=== PATIENT | female | born 1990 | race Caucasian/White ===

== ENCOUNTER 2017-03-21 20:12 | Emergency (ER) | payer MEDICAID, OTHER ==
[~2017-03-21] VITALS: Ht 149.9 cm; Wt 47.0 kg
[2017-03-21 20:13] VITALS: BP 115/69; PULSE 68; RESP 16; TEMP 98.6; O2SAT 99
[2017-03-21] MEDS ORDERED: CLIN150 PO (21:13)
[2017-03-21] MEDS ORDERED: DICL75TA PO (21:13)
[2017-03-21] MEDS ORDERED: CLINDAMYCIN 150 MG CAP PO ONE (21:15)
[2017-03-21] MEDS ORDERED: ACETAMINOPHEN/HYDROcodone 325 MG/5 MG TAB PO ONE (21:15)
--- NOTE | 2017-03-21 21:17 | PD ---
HPI Chief Complaint: Oral / Dental Pain or Problem Time Seen by Provider: 21:00 Travel History International Travel<30 days: No Contact w/Intl Traveler<30days: No Traveled to known affect area: No History of Present Illness HPI 23-year-old white female presents to emergency Department with complaints of right upper second molar pain. She states that this is started bothering her over last 3 days. She had just got to [place] in the last 2-3 days from [place]. She is visiting family members. She is unsure when she is going home. She denies any fever or chills. She states the pain is mild-to- moderate. She reports having recently had dental work done on this tooth before coming to [place]. She patient does smoke and drink alcohol occasionally. Denies . PFSH Past Medical History Medical History: Denies Significant Hx Immunizations Current: Yes Tetanus Vaccination: < 5 Years Influenza Vaccination: Yes ?: Not Past Surgical History Narrative Surgical Appendectomy, cholecystectomy Social History Alcohol Use: Yes Tobacco Use: Yes Substance Use: No Allergies-Medications (Allergen,Severity, Reaction): Coded Allergies: penicillin G (Verified Allergy, Severe, Anaphylaxis, 03/21/17) Reported Meds & Prescriptions Reported Meds & Active Scripts Active Diclofenac Sodium DR (Diclofenac Sodium) 75 Mg Tabdr 75 Mg PO BID Cleocin (Clindamycin HCl) 150 Mg Cap 300 Mg PO Q6H 10 Days Review of Systems Except as stated in HPI: all other systems reviewed are Neg Physical Exam Narrative GENERAL: Well-developed, well-nourished in no acute distress. Nontoxic appearing. HEAD: Normocephalic, atraumatic. EYES: Pupils equal round and reactive. Extraocular motions intact. No scleral icterus. No injection or drainage. ENT: TMs clear without erythema. The external auditory canals clear. Nose: clear . Posterior pharynx is pink and moist. No tonsillar edema or exudate. Uvula midline. Airway patent. The patient points to tooth #2. There is a filling in the tooth but everything appears normal around the tooth. NECK: Trachea midline.Supple, nontender, moves head freely. No central bony tenderness or spasm. CARDIOVASCULAR: Regular rate and rhythm without murmurs, gallops, or rubs. RESPIRATORY: Clear to auscultation. Breath sounds equal bilaterally. No wheezes , rales, or rhonchi. GASTROINTESTINAL: Abdomen soft, non-tender, nondistended. No hepato-splenomegaly , or palpable masses. No guarding. EXTREMITIES: No clubbing, cyanosis, or edema. No joint tenderness, effusion, or edema noted. BACK: Nontender without deformity or crepitance. No flank tenderness. Data Data Last Documented VS Vital Signs Date Time Temp Pulse Resp B/P (MAP) Pulse Ox O2 Delivery O2 Flow Rate FiO2 03/21/17 20:13 98.6 68 16 115/69 (84) 99 Room Air Orders Orders Clindamycin (Cleocin) (03/21/17 21:15) Acetamin-Hydrocod 325-5 Mg ([place] 5-325 (03/21/17 21:15) MDM Medical Decision Making Medical Screen Exam Complete: Yes Emergency Medical Condition: Yes Medical Record Reviewed: Yes Differential Diagnosis MDM: Moderate Differential diagnoses: Dental abscess, dental caries, osteitis, cellulitis Narrative Course Dentalgia Patient's given Lortab 5 and clindamycin 300 mg by mouth Diagnosis Primary Impression: Dentalgia Patient Instructions: Narcotic given in the ED, General Instructions Additional Instructions: Rest. Saltwater gargles. Olla oil on cotton balls. Clindamycin and diclofenac follow-up with a dentist as soon as possible. And return to the ER if any problems. Med/Other Pt SpecificInfo: Prescription(s) given Scripts Diclofenac Sodium DR (Diclofenac Sodium DR) 75 Mg Tabdr 75 MG PO BID, #20 TAB 0 Refills Prov: Eve Colindres MD 03/21/17 Clindamycin (Cleocin) 150 Mg Cap 300 MG PO Q6H for Infection for 10 Days, #80 CAP 0 Refills Prov: Eve Colindres MD 03/21/17 Disposition: 01 DISCHARGE HOME Condition: Stable Casimiro Lenz Mar 21, 2017 21:17
[2017-03-22] MEDS ORDERED: NEUR300C PO (22:12)
[2017-03-22] MEDS ORDERED: ACYC800T PO (22:12)
== END 2017-03-21 21:36 | disposition home or self-care (01) ==
LOC: NEPK 20:12
DX: K08.89 Other specified disorders of teeth and supporting structures (principal); Z72.0 Tobacco use; Z79.899 Other long term (current) drug therapy; Z88.0 Allergy status to penicillin
CPT/HCPCS: 99284

== ENCOUNTER 2017-03-22 21:09 | Emergency (ER) | payer MEDICAID, OTHER ==
[~2017-03-22] VITALS: Ht 149.9 cm; Wt 50.0 kg
[~2017-03-22 21:09] MED LIST: CLIN150 PO; DICL75TA PO
[2017-03-22 21:11] VITALS: BP 121/77; PULSE 86; RESP 16; TEMP 98; O2SAT 100
[2017-03-22] MEDS ORDERED: NEUR300C PO (22:12)
[2017-03-22] MEDS ORDERED: ACYC800T PO (22:12)
[2017-03-22] MEDS ORDERED: GABAPENTIN 300 MG CAP PO ONE (22:15)
[2017-03-22] MEDS ORDERED: ACYCLOVIR 800 MG TAB PO ONE (22:15)
--- NOTE | 2017-03-22 22:17 | PD ---
HPI Chief Complaint: Oral / Dental Pain or Problem Time Seen by Provider: 22:02 Travel History International Travel<30 days: No Contact w/Intl Traveler<30days: No Traveled to known affect area: No History of Present Illness HPI 26-year-old white female presents to emergency department after being seen last evening for right upper dental pain and placed on clindamycin and diclofenac. She states that she went to a dentist today who performed an x-ray of her tooth and did not see anything that looked obvious. The patient later developed blistering on the roof of her mouth and on the corner of her mouth. The dentist felt that she may be developing shingles and advised her come back to the ER. The patient does admit to pain in the right side of her face although she does not have any rashes on the exterior of her face. She admits to feeling rundown and having a headache. No nausea vomiting. Mild sore throat. PFSH Past Medical History Medical History: Denies Significant Hx Immunizations Current: Yes Tetanus Vaccination: < 5 Years ?: Not LMP: IUD Past Surgical History Appendectomy: Yes Cholecystectomy: Yes Tonsillectomy: Yes (T&A) Social History Alcohol Use: Yes Tobacco Use: Yes Substance Use: No Allergies-Medications (Allergen,Severity, Reaction): Coded Allergies: penicillin G (Verified Allergy, Severe, Anaphylaxis, 03/22/17) Reported Meds & Prescriptions Reported Meds & Active Scripts Active Neurontin (Gabapentin) 300 Mg Cap 300 Mg PO TID Acyclovir 800 Mg Tab 800 Mg PO 5 TIMES A DAY [address] (Diclofenac Sodium) 75 Mg Tabdr 75 Mg PO BID Cleocin (Clindamycin HCl) 150 Mg Cap 300 Mg PO Q6H 10 Days Review of Systems Except as stated in HPI: all other systems reviewed are Neg Physical Exam Narrative GENERAL: Well-developed, well-nourished in no acute distress. Nontoxic appearing. HEAD: Normocephalic, atraumatic. EYES: Pupils equal round and reactive. Extraocular motions intact. No scleral icterus. No injection or drainage. ENT: TMs clear without erythema. The external auditory canals clear. Nose: clear . Posterior pharynx is pink and moist. No tonsillar edema or exudate. Uvula midline. Airway patent. NECK: Trachea midline.Supple, nontender, moves head freely. No central bony tenderness or spasm. CARDIOVASCULAR: Regular rate and rhythm without murmurs, gallops, or rubs. RESPIRATORY: Clear to auscultation. Breath sounds equal bilaterally. No wheezes , rales, or rhonchi. GASTROINTESTINAL: Abdomen soft, non-tender, nondistended. No hepato-splenomegaly , or palpable masses. No guarding. EXTREMITIES: No clubbing, cyanosis, or edema. No joint tenderness, effusion, or edema noted. BACK: Nontender without deformity or crepitance. No flank tenderness. Skin: Patient has 3 small 2-3 mm vesicular lesions on the dry vermilion of the right lower lip. Patient has some gingival erythema and ulceration on the hard palate on the right side. I see no vesicular lesions on the outer face. Data Data Last Documented VS Vital Signs Date Time Temp Pulse Resp B/P (MAP) Pulse Ox O2 Delivery O2 Flow Rate FiO2 03/22/17 21:11 98.0 86 16 121/77 (92) 100 Orders Orders Acyclovir (Zovirax) (03/22/17 22:15) Gabapentin (Neurontin) (03/22/17 22:15) [facility] Medical Decision Making Medical Screen Exam Complete: Yes Emergency Medical Condition: Yes Medical Record Reviewed: Yes Differential Diagnosis Diagnosis: Shingles versus HSV versus dental abscess Narrative Course I explained to the patient that her symptoms are classical of a shingles outbreak but I will be happy to treat her today. She does have symptoms consistent with HSV. Patient is concerned that this potentially could be early stages of shingles and would like to treat it. Patient's given acyclovir 800 mg by mouth and Neurontin 300 mg by mouth. Diagnosis Primary Impression: Shingles Qualified Codes: B02.9 - Zoster without complications Patient Instructions: General Instructions Additional Instructions: Rest. Daily wound care with soap and water and apply calamine lotion. Acyclovir and Neurontin. Follow-up with a primary care doctor in the next 3-5 days for recheck. Return to the ER for emergencies Med/Other Pt SpecificInfo: Prescription(s) given Scripts Gabapentin (Neurontin) 300 Mg Cap 300 MG PO TID, #30 CAP 0 Refills Prov: Grover Moy MD 03/22/17 Acyclovir (Acyclovir) 800 Mg Tab 800 MG PO 5 TIMES A DAY for Mgmt Viral Infection for 7 Days, TAB 0 Refills Prov: Grover Myo MD 03/22/17 Disposition: 01 DISCHARGE HOME Condition: Stable Casimiro Lenz Mar 22, 2017 22:17
== END 2017-03-22 22:49 | disposition home or self-care (01) ==
LOC: NEPK 21:09
DX: B02.9 Zoster without complications (principal); Z72.0 Tobacco use
CPT/HCPCS: 99284

== ENCOUNTER 2017-05-16 20:02 | Emergency (ER) | payer MEDICAID ==
[~2017-05-16 20:02] MED LIST changes: +ACYC800T PO; +NEUR300C PO
[2017-05-16 20:03] VITALS: BP 127/72; PULSE 72; RESP 16; TEMP 98.7; O2SAT 100
--- NOTE | 2017-05-16 21:37 | PD ---
HPI Chief Complaint: Edema Time Seen by Provider: 21:29 Travel History International Travel<30 days: No Contact w/Intl Traveler<30days: No Traveled to known affect area: No History of Present Illness HPI 26-year-old female here for evaluation of right facial pain and swelling for 1 week. The patient was started on clinic might in 5 days ago. She states that she was seen by a dentist today who performed x-rays and told her that the x- rays of her teeth looked normal and that she should go to the emergency department for further evaluation. Pain is moderate, constant, worse with palpation, movements, slightly better with rest. She has had on and off fevers and chills. She is able to swallow and tolerate her secretions. No respiratory difficulties. PFSH Past Medical History Medical History: Denies Significant Hx Immunizations Current: Yes Tetanus Vaccination: < 5 Years Influenza Vaccination: Yes ?: Not LMP: 04/20/07 Past Surgical History Appendectomy: Yes Cholecystectomy: Yes Tonsillectomy: Yes (T&A) Social History Alcohol Use: Yes Tobacco Use: Yes Substance Use: No Allergies-Medications (Allergen,Severity, Reaction): Coded Allergies: penicillin G (Verified Allergy, Severe, Anaphylaxis, 03/22/17) Reported Meds & Prescriptions Reported Meds & Active Scripts Active Neurontin (Gabapentin) 300 Mg Cap 300 Mg PO TID Acyclovir 800 Mg Tab 800 Mg PO 5 TIMES A DAY [address] (Diclofenac Sodium) 75 Mg Tabdr 75 Mg PO BID Cleocin (Clindamycin HCl) 150 Mg Cap 300 Mg PO Q6H 10 Days Review of Systems Except as stated in HPI: all other systems reviewed are Neg Physical Exam Narrative GENERAL: Well-developed, well-nourished, comfortable, no apparent distress. SKIN: Focused skin assessment warm/dry. HEAD: Atraumatic. Normocephalic. Mild right cheek swelling without induration or fluctuance. EYES: Pupils equal and round. No scleral icterus. No injection or drainage. ENT: No nasal bleeding or discharge. Mucous membranes pink and moist. Normal dentition. Mild right cheek swelling. No tongue swelling. No trismus. No drooling or stridor. No neck swelling or induration. Normal phonation. Bilateral tympanic members and external auditory canals are normal. NECK: Trachea midline. No JVD. CARDIOVASCULAR: Regular rate and rhythm. RESPIRATORY: No accessory muscle use. Clear to auscultation. Breath sounds equal bilaterally. MUSCULOSKELETAL: No obvious deformities. No clubbing. No cyanosis. No edema. NEUROLOGICAL: Awake and alert. No obvious cranial nerve deficits. Motor grossly within normal limits. Normal speech. PSYCHIATRIC: Appropriate mood and affect; insight and judgment normal. Data Data Last Documented VS Vital Signs Date Time Temp Pulse Resp B/P (MAP) Pulse Ox O2 Delivery O2 Flow Rate FiO2 05/16/17 21:41 16 99 Room Air 05/16/17 20:03 98.7 72 Orders Orders Complete Blood Count With Diff (05/16/17 21:34) Comprehensive Metabolic Panel (05/16/17 21:34) Prothrombin Time / Inr (Pt) (05/16/17 21:34) Act Partial Throm Time (Ptt) (05/16/17 21:34) Iv Access Insert/Monitor (05/16/17 21:34) Ecg Monitoring (05/16/17 21:34) Oximetry (05/16/17 21:34) Sodium Chloride 0.9% Flush (Ns Flush) (05/16/17 21:45) Ct Facial Bones W Iv Contrast (05/16/17 ) Ketorolac Inj (Toradol Inj) (05/16/17 21:45) Ed Urine Pregnancytest Poc (05/16/17 21:45) Iohexol 350 Inj (Omnipaque 350 Inj) (05/16/17 22:02) Levofloxacin (Levaquin) (05/16/17 23:00) Prednisone (Deltasone) (05/16/17 23:00) Labs Laboratory Tests Test 05/16/17 21:35 White Blood Count 10.1 TH/MM3 Red Blood Count 5.14 MIL/MM3 Hemoglobin 15.3 GM/DL Hematocrit 44.1 % Mean Corpuscular Volume 85.7 FL Mean Corpuscular Hemoglobin 29.7 PG Mean Corpuscular Hemoglobin Concent 34.6 % Red Cell Distribution Width 13.0 % Platelet Count 247 TH/MM3 Mean Platelet Volume 9.5 FL Neutrophils (%) (Auto) 61.4 % Lymphocytes (%) (Auto) 28.1 % Monocytes (%) (Auto) 6.6 % Eosinophils (%) (Auto) 3.4 % Basophils (%) (Auto) 0.5 % Neutrophils # (Auto) 6.2 TH/MM3 Lymphocytes # (Auto) 2.9 TH/MM3 Monocytes # (Auto) 0.7 TH/MM3 Eosinophils # (Auto) 0.3 TH/MM3 Basophils # (Auto) 0.0 TH/MM3 CBC Comment DIFF FINAL Differential Comment Prothrombin Time 10.1 SEC Prothromb Time International Ratio 0.9 RATIO Activated Partial Thromboplast Time 27.2 SEC Blood Urea Nitrogen 15 MG/DL Creatinine 1.05 MG/DL Random Glucose 82 MG/DL Total Protein 7.9 GM/DL Albumin 3.9 GM/DL Calcium Level 9.1 MG/DL Alkaline Phosphatase 98 U/L Aspartate Amino Transf (AST/SGOT) 17 U/L Alanine Aminotransferase (ALT/SGPT) 19 U/L Total Bilirubin 0.3 MG/DL Sodium Level 139 MEQ/L Potassium Level 3.7 MEQ/L Chloride Level 107 MEQ/L Carbon Dioxide Level 24.5 MEQ/L Anion Gap 8 MEQ/L Estimat Glomerular Filtration Rate 64 ML/MIN [facility] Medical Decision Making Medical Screen Exam Complete: Yes Emergency Medical Condition: Yes Differential Diagnosis Parotitis, dental abscess, Narrative Course Vital signs show heart rate 72, blood pressure 127/72, pulse ox 100% on room air , oral temp of 98.7F. CBC is unremarkable. CMP is essentially unremarkable. CT facial bones without contrast: CONCLUSION: 1. Chronic sinusitis in the right maxillary antra. 2. No fracture Patient made aware of CT findings. She is allergic to amoxicillin. She'll be started on Levaquin and prednisone. States that her symptoms feel somewhat improved after IV Toradol. I will give her the name of the ENT specialist with whom to follow-up with this week. She was informed on when to return to the emergency department. She verbalizes understanding and agreement with plan. Diagnosis Primary Impression: Maxillary sinusitis Qualified Codes: J01.00 - Acute maxillary sinusitis, unspecified Referrals: Servando Bynum MD 3 days ENT Primary Care Physician 3 days Additional Instructions: Follow-up with ENT specialist Dr. Bynum or an ENT specialist of your choice this week. Take antibiotics as prescribed. Follow-up with a primary care physician this week. Return to the emergency department for worsening symptoms or any other concerns. Scripts Prednisone (Prednisone) 50 Mg Tab 50 MG PO DAILY for 5 Days, #5 TAB 0 Refills Prov: Grover Moy MD 05/16/17 Levofloxacin (Levaquin) 500 Mg Tablet 500 MG PO DAILY for Infection for 5 Days, #5 TAB 0 Refills Prov: Grover Moy MD 05/16/17 Disposition: 01 DISCHARGE HOME Condition: Stable Grover Moy MD May 16, 2017 21:37
[2017-05-16 21:41] VITALS: RESP 16; O2SAT 99
[2017-05-16] MEDS ORDERED: KETOROLAC TROMETHAMINE 30 MG/ML (IVP) VIAL IV PUSH ONE (21:45)
[2017-05-16] MEDS ORDERED: SODIUM CHLORIDE 0.9% FLUSH 10 ML FLUSH IV FLUSH PRN (21:45)
[2017-05-16] MEDS ORDERED: IOHEXOL 350 MG/ML 10 ML VIAL (for RAD DIAG) IVCONTRAST ONE (22:02)
[2017-05-16 22:09] LABS: AUTOMATED NEUTROPHIL # 6.2 TH/MM3 (1.8-7.7); BASOPHIL % 0.5 % (0.0-2.0); EOSINOPHIL # 0.3 TH/MM3 (0-0.4); EOSINOPHIL % 3.4 % (0.0-4.0); HEMATOCRIT 44.1 % (35.0-46.0); HEMO FLAGS DIFF FINAL; LYMPH % 28.1 % (9.0-44.0); LYMPHOCYTE # 2.9 TH/MM3 (1.0-4.8); MEAN CELL VOLUME 85.7 FL (80.0-100.0); MEAN CORPUSCULAR HEMOGLOBIN 29.7 PG (27.0-34.0); MEAN CORPUSCULAR HGB CONC 34.6 % (32.0-36.0); MONO % 6.6 % (0.0-8.0); NEUT % 61.4 % (16.0-70.0); PLATELET COUNT 247 TH/MM3 (150-450); RED BLOOD COUNT 5.14 MIL/MM3 (4.00-5.30); WHITE BLOOD COUNT 10.1 TH/MM3 (4.0-11.0)
[2017-05-16 22:25] LABS: APTT (PATIENT) 27.2 SEC (24.3-30.1); INTERNATIONAL NORMALIZED RATIO 0.9 RATIO; PROTHROMBIN TIME - PATIENT 10.1 SEC (9.8-11.6)
[2017-05-16 22:33] LABS: ANION GAP 8 MEQ/L (5-15); AST (GOT) 17 U/L (15-37); BICARBONATE 24.5 MEQ/L (21.0-32.0); BLOOD UREA NITROGEN 15 MG/DL (7-18); CHLORIDE 107 MEQ/L (98-107); GLOMERULAR FILTRATION RATE 64 ML/MIN (>89); POTASSIUM 3.7 MEQ/L (3.5-5.1); SODIUM (NA) 139 MEQ/L (136-145)
[2017-05-16 22:35] LABS: ALT (GPT) 19 U/L (10-53)
[2017-05-16 22:37] LABS: ALKALINE PHOSPHATASE 98 U/L (45-117); TOTAL BILIRUBIN ADULT 0.3 MG/DL (0.2-1.0)
--- NOTE | 2017-05-16 22:38 | RADRPT ---
EXAM DATE/TIME: 05/16/2017 21:53 [facility] COMPARISON: No previous studies available for comparison. INDICATIONS : Right sided facial swelling past 7 days. IV CONTRAST: 50 cc Omnipaque 350 (iohexol) IV RADIATION DOSE: 36.57 CTDIvol (mGy) MEDICAL HISTORY : None SURGICAL HISTORY : None. ENCOUNTER: Initial ACUITY: 1 week PAIN SCALE: 10/10 LOCATION: Right facial TECHNIQUE: Volumetric scanning of the facial bones was performed. Using automated exposure control and adjustme nt of the mA and/or kV according to patient size, radiation dose was kept as low as reasonably achiev able to obtain optimal diagnostic quality images. DICOM format image data is available electronicall y for review and comparison. FINDINGS: ORBITS: The orbital and infraorbital osseous structures are intact. The retroconal structures have a normal configuration. No radiopaque foreign bodies are seen. NASAL BONE: The nasal bone and maxillary spine are intact ZYGOMATIC ARCHES: Symmetric without evidence of fracture. SINUSES: Chronic mucoperiosteal thickening in the inferior aspect of the right maxillary antra. NASAL CAVITY: The nasal septum is intact and midline. The lacrimal ducts are intact. SOFT TISSUES: No radiopaque foreign bodies seen. No soft-tissue swelling is seen. INTRACRANIAL: No intracranial air seen. CRIBIFORM PLATE: Grossly intact. CONCLUSION: 1. Chronic sinusitis in the right maxillary antra. 2. No fracture Calixto Birmingham MD on May 16, 2017 at 22:36 Board Certified Radiologist. This report was verified electronically.
[2017-05-16] MEDS ORDERED: predniSONE 50 MG TAB PO ONE (23:00)
[2017-05-16] MEDS ORDERED: LEVOFLOXACIN 500 MG TAB PO ONE (23:00)
[2017-05-16] MEDS ORDERED: PRED50 PO (23:01)
[2017-05-16] MEDS ORDERED: LEVA500T33 PO (23:01)
== END 2017-05-16 23:15 | disposition home or self-care (01) ==
LOC: NEPD 20:02
DX: J32.0 Chronic maxillary sinusitis (principal); Z79.899 Other long term (current) drug therapy; Z88.0 Allergy status to penicillin; Z72.0 Tobacco use
CPT/HCPCS: 70487; 80053; 84703; 85025; 85610; 85730; 96374; 99285; J1885; J7512; Q9967